=== PATIENT | female | born 1950 | race Caucasian/White ===

== ENCOUNTER → 2017-02-04 | Outpatient (CLI) | payer OTHER | LOC: FIMAGING 09:32 | PROVIDERS: ATTEND Surgery | DX: N63 Unspecified lump in breast (principal) | CPT/HCPCS: G0206 ==

== ENCOUNTER → 2017-02-26 | Outpatient (CLI) | payer OTHER ==
[~2017-02-26] MED LIST: THROMBIN (BOVINE) 5,000 UNIT VIAL TP ONE
== END ==
LOC: FIMAGING 13:45
PROVIDERS: ATTEND Surgery
PROC: 0HBU3ZX Excision of Left Breast, Percutaneous Approach, Diagnostic (ICD-10-PCS; principal; 2017-02-26)
DX: N63 Unspecified lump in breast (principal)
CPT/HCPCS: G0206

== ENCOUNTER → 2017-03-18 | Outpatient (CLI) | payer OTHER ==
[~2017-03-18] MED LIST changes: +GADOBUTROL 10 ML VIAL IVP ONE; -THROMBIN (BOVINE) 5,000 UNIT VIAL TP ONE
== END ==
LOC: FIMAGING 11:00
PROVIDERS: ATTEND Surgery
DX: C50.212 Malignant neoplasm of upper-inner quadrant of left female breast (principal)
CPT/HCPCS: 0159T; A9585; C8908

== ENCOUNTER 2017-03-28 06:42 | Inpatient (IN) | payer OTHER ==
[~2017-03-28 06:42] MED LIST changes: -GADOBUTROL 10 ML VIAL IVP ONE; +ceFAZolin 2 GM/DEXTROSE 100 ML IV ONE
[2017-03-28] MEDS ORDERED: THROMBIN (BOVINE) 20,000 UNIT SPRAY TP ONE (07:13)
[2017-03-28] MEDS ORDERED: BUPIVACAINE 0.5% 30 ML SDV ONE (07:13)
[2017-03-28] MEDS ORDERED: LIDOCAINE 1% 2 ML INJ ONE (07:22)
[2017-03-28] MEDS ORDERED: LR 1,000 ML IV ONE (08:24)
[2017-03-28] MEDS ORDERED: LIDOCAINE 1% 5 ML SDV ID PRN (08:24)
[2017-03-28] MEDS ORDERED: SCOPOLAMINE HYDROBROMIDE 1.5 MG PATCH TD ONE (09:18)
[2017-03-28] MEDS ORDERED: ONDANSETRON 4 MG/2 ML VIAL ONE (09:36)
[2017-03-28] MEDS ORDERED: fentaNYL 100 MCG/2 ML INJ ONE (09:36)
[2017-03-28] MEDS ORDERED: PROPOFOL 200 MG/20 ML VIAL ONE ×2 (09:36→12:03)
[2017-03-28] MEDS ORDERED: DEXAMETHASONE 4 MG/ML VIAL ONE ×2 (09:36→10:25)
[2017-03-28] MEDS ORDERED: LIDOCAINE 2% 5 ML SDV ONE (09:37)
[2017-03-28] MEDS ORDERED: KETOROLAC 30 MG/1 ML SDV ONE (09:40)
[2017-03-28] MEDS ORDERED: MIDAZOLAM 2 MG/2 ML VIAL ONE (10:03)
[2017-03-28] MEDS ORDERED: ACETAMINOPHEN 500 MG TAB ONE (10:05)
[2017-03-28] MEDS ORDERED: PROPOFOL/EMULSION 500 MG/50 ML BOTTLE IV ONE ×2 (10:17→11:10)
--- NOTE | 2017-03-28 10:36 | POSTOPPROG ---
Post Op Note Date of Operation: 03/28/17 Surgeon: Daphne Matthews Collision Mechanic: lior Anesthesiologist: manoj Anesthesia: GET(General Endotracheal) Pre-op Diagnosis: left metaplastic breast cancer Post-op Diagnosis: same Indication: 66 yo with metaplastic breast cancer Procedure: bilateral mastectomy, bilateral sln, r port Inf/Abcess present in the surg proc area at time of surgery?: No Depth: Superfical (Skin SQ) EBL: 50-100 Drains: Fidel Cisneros Specimen(s): breast short superior long lateral, bilateral sln
[2017-03-28] MEDS ORDERED: HYDROmorphONE/DILAUDID 2 MG/ML INJ ONE (11:09)
[2017-03-28] MEDS ORDERED: epHEDrine SULFATE 10 MG/ML SYR ONE (11:27)
[2017-03-28] MEDS ORDERED: HYDROmorphONE/DILAUDID 2 MG TAB PO PRN (12:20)
[2017-03-28] MEDS ORDERED: ONDANSETRON 4 MG/2 ML VIAL IVP PRN (12:22)
[2017-03-28] MEDS ORDERED: HYDROmorphONE/DILAUDID 1 MG/ML SYR IVP PRN (12:24)
--- NOTE | 2017-03-28 13:55 | GOP ---
[f rep st] OPERATIVE REPORT DATE OF OPERATION: 03/28/2017 SURGEON: Daphne Matthews MD PAYMENT PROCESSOR: Judd Carson MD who was requested by my presence for timely completion of the case. ANESTHESIOLOGIST: Sergei Alexander MD. PREOPERATIVE DIAGNOSIS: Left breast metaplastic carcinoma, left upper inner quadrant. POSTOPERATIVE DIAGNOSIS: Left breast metaplastic carcinoma, left upper inner quadrant. PROCEDURE PERFORMED: Bilateral mastectomy, bilateral sentinel node, right subclavian Slim PowerPort placement. FINDINGS: [place] lymph nodes negative. SPECIMENS: 1. Right mastectomy short superior long lateral. 2. Right sentinel lymph node. 3. Left mastectomy short superior long lateral. 1. Left sentinel lymph node. 4. ESTIMATED BLOOD LOSS: 100 cc. INDICATIONS: Marilin Lebron is a 66-year-old woman who had a left upper inner breast mass. Her needle biopsy was discongruent with the radiographic findings. Excisional biopsy was performed. A metaplastic carcinoma was diagnosed. We discussed lumpectomy versus mastectomy, and she would like to proceed with bilateral mastectomy. DESCRIPTION OF PROCEDURE: Marilin was brought into the operating room, placed supine on the table, and general anesthesia was administered. Her bilateral neck and chest were prepped and draped in the usual sterile fashion. I started on the right side. I made an ellipse around the nipple areolar complex and created skin flaps that extended to the clavicle sternum inframammary fold and mid axillary line. I removed the breast including the pectoralis fascia. The breast was marked short superior, long lateral and sent to Pathology for fresh. Hemostasis was achieved. I used the gamma probe to identify the sentinel lymph node in the right axilla. This was submitted to Pathology for frozen. A damp lap was placed in this wound. On the left side, a similar dissection occurred. My incision was slightly different to include her previous scar. Again, my skin flaps occurred to the clavicle, sternum, inframammary fold, and mid axillary line, and I also took the pectoralis fascia. I did not enter the previous lumpectomy cavity. This breast sent to Pathology for fresh. I obtained a sentinel lymph node, and this was sent to Pathology for frozen. Hemostasis was achieved. The patient was in the Trendelenburg position with her arm at her side. I accessed the right subclavian vein on the 2nd attempt with dark return of blood flow. I threaded the guidewire and removed the needle. Placement was confirmed in the inferior vena cava with fluoroscopy. I placed the port over her pectoralis muscle and tunnelled this up to the insertion site. I measured and cut the catheter to size. Using the Seldinger technique, I placed a dilator and sheath over the wire. I removed the wire and the dilator. I threaded the catheter through the sheath and I peeled away the sheath. The initial placement appeared to be in the right ventricle, and so I pulled the port back slightly. Placement was then at the SVC RA junction. I sutured the port to the pectoralis muscle with 2-0 Vicryl. A 15 Kaden drain was placed in each wound. They were sutured with 3-0 nylon. Each wound was inspected for hemostasis which was achieved. Each wound was closed with 3-0 Vicryl, followed by 4-0 Monocryl. Due to her adhesive allergy , Dermabond was applied. She was awakened in the operating room, extubated, transferred to PACU in stable condition. A chest x-ray is pending. /[id number]/MODL MTDD
[2017-03-28] MEDS: D5W 1/2 NS W/ 20 KCl/L 1,000 ML IV SCH (14:53)
[2017-03-28] MEDS: KETOROLAC 15 MG/1 ML SDV IVP SCH (18:11)
[2017-03-28] MEDS ORDERED: diphenhydrAMINE 25 MG CAP PO PRN (19:03)
[2017-03-28] MEDS: ACETAMINOPHEN 500 MG TAB PO PRN (21:05)
[2017-03-28] MEDS: VERAPAMIL ER 180 MG TAB PO SCH (21:07)
[2017-03-28] MEDS: DIVALPROEX ER 500 MG TAB PO SCH (21:07)
[2017-03-29] MEDS: KETOROLAC 15 MG/1 ML SDV IVP SCH ×2 (00:03→04:55)
[2017-03-29] MEDS ORDERED: NS BOLUS 500 ML (Wide open) IV ONE (00:30)
[2017-03-29] MEDS: D5W 1/2 NS W/ 20 KCl/L 1,000 ML IV SCH (04:55)
[2017-03-29 05:40] LABS: % IMMATURE GRANULYOCYTES 0.3 % (0.0-1.1); ABSOLUTE IMMATURE GRANULOCYTES 0.03 10^3/uL (0.00-0.10); ADD DIFF? NO; ADD MORPH? NO; ADD SCAN? NO; ATYPICAL LYMPHOCYTE FLAG 0 (0-99); FRAGMENT RBC FLAG 0 (0-99); HEMATOCRIT 29.3 % (38.0-47.0); HEMOGLOBIN 9.4 g/dL (12.6-16.3); LEFT SHIFT FLG 20 (0-99); LIPEMIA HEMOLYSIS FLAG 80 (0-99); MEAN CELL HEMOGLOBIN 29.7 pg (27.9-34.1); MEAN CELL HEMOGLOBIN CONCENTR. 32.1 g/dL (32.4-36.7); MEAN CELL VOLUME 92.7 fL (81.5-99.8); MEAN PLATELET VOLUME 11.3 fL (8.7-11.7); PLATELET CLUMPS FLAG 0 (0-99); PLATELET COUNT 142 10^3/uL (150-400); RED BLOOD CELL COUNT 3.16 10^6/uL (4.18-5.33); RED CELL DISTRIBUTION WIDTH 12.6 % (11.5-15.2)
[2017-03-29 06:35] LABS: ANION GAP 8 mEq/L (8-16); CALCIUM 8.3 mg/dL (8.5-10.4); CARBON DIOXIDE 22 mEq/l (22-31); CHLORIDE 106 mEq/L (97-110); CREATININE 0.8 mg/dL (0.6-1.0); GLOMERULAR FILTRATION RATE > 60; GLUCOSE 118 mg/dL (70-100); POTASSIUM 4.5 mEq/L (3.5-5.2); SODIUM 136 mEq/L (134-144)
--- NOTE | 2017-03-29 07:24 | SOAPPROG ---
SOAP Progress Note Assessment/Plan: Assessment: POD # 1 s/p bilateral mastectomy and bilateral sentinel lymph node and right subclavian port for left upper inner metaplastic breast cancer Vagal response last evening Acute anemia blood loss - will recheck H/H this afternoon Difficulty sleeping - added ambien May shower with drains Does not need covering over wounds (dermabond in place) Blood pressure can be on either leg, try to be consistent positioning S: Feeling better today Plan: 03/29/17 07:21 03/29/17 12:58 Objective: Vital Signs Temp Pulse Resp BP Pulse Ox 36.6 C 67 16 105/60 98 03/29/17 04:48 03/29/17 04:48 03/29/17 04:48 03/29/17 04:48 03/29/17 04:48 Laboratory Results 03/29/17 05:01 03/29/17 05:01 03/28/17 03/29/17 03/30/17 05:59 05:59 05:59 Intake Total 4700 Output Total 1255 Balance 3445 Physical Exam - Physical Exam General Appearance: WD/WN, alert, no apparent distress, other ( at bedside) EENT: PERRL/EOMI, normal ENT inspection Respiratory: chest non-tender, lungs clear Cardiac/Chest: regular rate, rhythm Skin: other (ecchymosis and some fullness on right breast. Left breast with small ecchymosis. both ROGERIO drains with serosanguinous fluid right more than left. Port site cdi) ICD10 Worksheet Patient Problems: Problems Problem Status Onset Breast cancer in female Acute - ICD10 Problem Qualifiers (1) Breast cancer in female Qualifiers: Breast location: upper inner quadrant of breast Laterality: left Qualified Code(s): C50.212 - Malignant neoplasm of upper-inner quadrant of left female breast
[2017-03-29] MEDS: ACETAMINOPHEN 500 MG TAB PO PRN ×2 (09:50→18:18)
[2017-03-29 11:32] VITALS: RESP 16
[2017-03-29] MEDS ORDERED: ZOLPIDEM TARTRATE 5 MG TAB PO PRN (11:56)
[2017-03-29] MEDS ORDERED: KETOROLAC 15 MG/1 ML SDV IVP PRN (11:59)
[2017-03-29] MEDS ORDERED: (Eletriptan Hbr [Relpax] 40 MG) PO PRN (13:56)
[2017-03-29 16:34] LABS: HEMATOCRIT 24.9 % (38.0-47.0)
[2017-03-29] MEDS ORDERED: VERAPAMIL ER 180 MG TAB PO SCH (21:00)
[2017-03-29] MEDS ORDERED: DIVALPROEX ER 500 MG TAB PO SCH (21:00)
[2017-03-29] MEDS: DIVALPROEX ER 500 MG TAB PO SCH (21:31)
[2017-03-29] MEDS: VERAPAMIL ER 180 MG TAB PO SCH (21:37)
[2017-03-30 05:23] LABS: % IMMATURE GRANULYOCYTES 0.3 % (0.0-1.1); ABSOLUTE IMMATURE GRANULOCYTES 0.02 10^3/uL (0.00-0.10); ADD DIFF? NO; ADD MORPH? NO; ADD SCAN? NO; ATYPICAL LYMPHOCYTE FLAG 10 (0-99); FRAGMENT RBC FLAG 0 (0-99); HEMATOCRIT 28.1 % (38.0-47.0); HEMOGLOBIN 9.1 g/dL (12.6-16.3); LEFT SHIFT FLG 0 (0-99); LIPEMIA HEMOLYSIS FLAG 80 (0-99); MEAN CELL HEMOGLOBIN 29.8 pg (27.9-34.1); MEAN CELL HEMOGLOBIN CONCENTR. 32.4 g/dL (32.4-36.7); MEAN CELL VOLUME 92.1 fL (81.5-99.8); MEAN PLATELET VOLUME 11.3 fL (8.7-11.7); PLATELET CLUMPS FLAG 0 (0-99); PLATELET COUNT 106 10^3/uL (150-400); RED BLOOD CELL COUNT 3.05 10^6/uL (4.18-5.33); RED CELL DISTRIBUTION WIDTH 13.5 % (11.5-15.2)
--- NOTE | 2017-03-30 09:21 | SOAPPROG ---
SOAP Progress Note Assessment/Plan: Assessment: POD # 2 s/p bilateral mastectomy and bilateral sentinel lymph node and right subclavian port for left upper inner metaplastic breast cancer Acute anemia blood loss - transfused 1 unitPRBC DC home Does not need covering over wounds (dermabond in place) S: Feeling better today o: Sitting in bed, cheerful CTAB RRR Hematoma soft on right, none on left JPs with scant serosanguinous fluid Plan: 03/29/17 07:21 03/29/17 12:58 03/30/17 09:18 Objective: Vital Signs Temp Pulse Resp BP Pulse Ox 37.2 C 82 16 122/67 H 93 03/30/17 07:33 03/30/17 07:33 03/30/17 07:33 03/30/17 07:33 03/30/17 07:33 Laboratory Results 03/30/17 04:52 03/29/17 05:01 03/29/17 03/30/17 03/31/17 05:59 05:59 05:59 Intake Total 4700 1950 Output Total 1255 347 20 Balance 3445 1603 -20 ICD10 Worksheet Patient Problems: Problems Problem Status Onset Breast cancer in female Acute - ICD10 Problem Qualifiers (1) Breast cancer in female Qualifiers: Breast location: upper inner quadrant of breast Laterality: left Qualified Code(s): C50.212 - Malignant neoplasm of upper-inner quadrant of left female breast
[2017-03-30 12:10] VITALS: BP 128/77; PULSE 91; TEMP 98.2; O2SAT 98
== END 2017-03-30 15:41 | disposition home or self-care (01) | DRG 582 ==
LOC: FSGY 06:42 → F1N 10:37 → OBSVTOIN 03-29 15:35
PROVIDERS: ADMIT Surgery; ATTEND Surgery
DX: C50.212 Malignant neoplasm of upper-inner quadrant of left female breast (principal); D62 Acute posthemorrhagic anemia
CPT/HCPCS: 97161-GP; 97166-GO; 97530-GO; 97535-GO; A9520; C1788; G0378; J0690; J1100; J1170; J1642; J1885; J2250; J2405; J2704; J3010; P9016

== ENCOUNTER → 2017-07-16 | Outpatient (CLI) | payer OTHER | LOC: FIMAGING 16:31 | PROVIDERS: ATTEND Internal Medicine Hematology & Oncology | DX: R05 Cough (principal); C50.212 Malignant neoplasm of upper-inner quadrant of left female breast ==

== ENCOUNTER 2017-09-11 09:45 | Observation (INO) | payer OTHER ==
[~2017-09-11 09:45] MED LIST changes: -ceFAZolin 2 GM/DEXTROSE 100 ML IV ONE; +ceFAZolin 2 GM/SWFI 2 GM/20 ML SYR IVP ONE
[2017-09-11] MEDS ORDERED: LIDOCAINE 1% 2 ML INJ ID PRN (09:59)
[2017-09-11] MEDS ORDERED: LR 1,000 ML IV ONE (09:59)
[2017-09-11] MEDS ORDERED: BUPIVACAINE 0.5% 30 ML SDV ONE (10:15)
[2017-09-11] MEDS ORDERED: LIDOCAINE 1% 300 MG/30 ML SDV ONE (10:16)
[2017-09-11] MEDS ORDERED: MIDAZOLAM 2 MG/2 ML VIAL IVP ONE (11:23)
--- NOTE | 2017-09-11 11:24 | PDANEPAE ---
ANE History of Present Illness here for WLE ANE Past Medical History - Cardiovascular History Hx Hypertension: No Hx Arrhythmias: No Hx Chest Pain: No Hx Coronary Artery / Peripheral Vascular Disease: No Hx CHF / Valvular Disease: No Hx Palpitations: No - Pulmonary History Hx COPD: No Hx Asthma/Reactive Airway Disease: No Hx Recent Upper Respiratory Infection: No Hx Oxygen in Use at Home: No Hx Sleep Apnea: No - Neurologic History Hx Cerebrovascular Accident: No Hx Seizures: No Hx Dementia: No - Endocrine History Hx Diabetes: No - Renal History Hx Renal Disorders: Yes Renal History Comment: occ UTI or vaginal yeast infection - Liver History Hx Hepatic Disorders: No - Neurological & Psychiatric Hx Hx Neurological and Psychiatric Disorders: No - Cancer History Hx Cancer: Yes Cancer History Comment: L breast - Congenital Disorder History Hx Congenital Disorders: No - GI History Hx Gastrointestinal Disorders: No - Other Health History Other Health History: OA fingers - Chronic Pain History Chronic Pain: No - Surgical History Prior Surgeries: bilat mastecectomies 03/2017. rt rotater cuff rep 10/18. excisional L br bx 03-05-17. R total knee 2010. L total knee 2005. L rotator cuff 2010. bx-bilat [id number]. wedge resection of ovary 1974 ANE Review of Systems Review of Systems: - Exercise capacity Exercise capacity: >=4 METS METS (RN): 3 METS ANE Patient History - Allergies Allergies/Adverse Reactions: adhesive Allergy (Mild, Verified 09/11/17 10:48) Rash latex Allergy (Verified 09/11/17 10:48) Rash povidone-iodine [From Betadine] Allergy (Verified 09/11/17 10:48) Rash soap [From Betadine] Allergy (Verified 09/11/17 10:47) Rash chloroprep Allergy (Uncoded 09/11/17 10:43) Rash nickel Allergy (Uncoded 09/11/17 10:48) Rash surgical glue Allergy (Uncoded 09/11/17 10:48) Rash - Home Medications Home medications: home medication list seen and reviewed Home Medications: Acetamn/Diphenhydramine 500/25 [Tylenol PM (*)] 1 - 2 each PO HS PRN 03/28/17 [ Last Taken 03/27/17] Divalproex ER [Depakote ER 500 MG (*)] 500 mg PO HS 03/28/17 [Last Taken ] Eletriptan HBr [Relpax] 40 mg PO AD PRN MDD 2 tabs in 24 hours 03/28/17 [Last Taken Unknown] Verapamil ER [Calan SR/ER 180MG (*)] 180 mg PO HS 03/28/17 [Last Taken 03/27/17] - NPO status NPO Since - Liquids (Date): 09/10/17 NPO Since - Liquids (Time): 22:30 NPO Since - Solids (Date): 09/10/17 NPO Since - Solids (Time): 22:30 - Smoking Hx Smoking Status: Never smoked ANE Labs/Vital Signs - Vital Signs Blood Pressure: 107/80 Heart Rate: 85 Respiratory Rate: 16 O2 Sat (%): 96 Height: 170.18 cm Weight: 72.575 kg ANE Physical Exam - Airway Neck exam: FROM Mallampati Score: Class 1 - Pulmonary Pulmonary: no respiratory distress - Cardiovascular Cardiovascular: regular rate and rhythym - ASA Status ASA Status: II ANE Anesthesia Plan Anesthesia Plan: GA w LMA
--- NOTE | 2017-09-11 11:33 | PDHPUP ---
History & Physical Update H&P update statement: This history and physical update is based on an assessment of the patient which was completed after admission or registration (within 24 hours), but prior to the surgery/procedure. H&P update: H&P reviewed & patient examined H&P changes: Met with [facility] yesterday. Reviewed CT results with Dr. Sullivan and plan of care. Will re-excise, send frozens and close
[2017-09-11] MEDS ORDERED: ceFAZolin 2 GM/SWFI 20 ML SYR IVP ONE (11:37)
[2017-09-11] MEDS ORDERED: MIDAZOLAM 2 MG/2 ML VIAL ONE (11:37)
[2017-09-11] MEDS ORDERED: SCOPOLAMINE HYDROBROMIDE 1 MG/3 DAYS PATCH TD SCH (11:45)
[2017-09-11] MEDS ORDERED: fentaNYL 100 MCG/2 ML INJ ONE ×2 (11:52→12:30)
[2017-09-11] MEDS ORDERED: PROPOFOL/EMULSION 500 MG/50 ML BOTTLE IV ONE (11:53)
[2017-09-11] MEDS ORDERED: PROPOFOL 200 MG/20 ML VIAL ONE ×3 (12:05→12:48)
[2017-09-11] MEDS ORDERED: ALBUTEROL 3 ML DEYVIAL IH PRN (12:14)
[2017-09-11] MEDS ORDERED: NALOXONE HCL 0.4 MG/ML INJ IVP PRN (12:14)
[2017-09-11] MEDS ORDERED: HYDROmorphONE/DILAUDID 1 MG/ML INJ IVP PRN ×2 (12:14→13:40)
[2017-09-11] MEDS ORDERED: fentaNYL 100 MCG/2 ML INJ IVP PRN (12:14)
[2017-09-11] MEDS ORDERED: OXYCODONE/APAP 5/325 TAB PO PRN (12:14)
[2017-09-11] MEDS ORDERED: HYDROCODONE/APAP 5/325 TAB PO PRN (12:14)
[2017-09-11] MEDS ORDERED: HYDROmorphone HCL/NS/PF 0.4 MG/2 ML SYR IVP PRN (12:50)
[2017-09-11] MEDS ORDERED: SCOPOLAMINE HYDROBROMIDE 1 MG/3 DAYS PATCH TD ONE (13:16)
[2017-09-11] MEDS ORDERED: IBUPROFEN 600 MG TAB PO PRN (13:40)
[2017-09-11] MEDS ORDERED: ONDANSETRON 4 MG/2 ML VIAL IVP PRN (13:40)
--- NOTE | 2017-09-11 13:42 | POSTOPPROG ---
Post Op Note Date of Operation: 09/11/17 Surgeon: Daphne Matthews Piercing Artist: shasta loera Anesthesiologist: david mendoza Anesthesia: GET(General Endotracheal) Pre-op Diagnosis: L metaplastic carcinoma Post-op Diagnosis: same Indication: 66 yo with recurrent metaplastic cancer Procedure: wle L breast Findings: negative frozen Inf/Abcess present in the surg proc area at time of surgery?: No Depth: Superfical (Skin SQ) Drains: Fidel Cisneros Specimen(s): wle and margins
[2017-09-11] MEDS: ACETAMINOPHEN 325 MG TAB PO PRN ×2 (14:36→20:32)
[2017-09-11] MEDS ORDERED: ZOLPIDEM TARTRATE 5 MG TAB PO PRN (17:26)
[2017-09-11 19:46] VITALS: RESP 16
--- NOTE | 2017-09-11 20:43 | GOP ---
[f rep st] OPERATIVE REPORT DATE OF OPERATION: 09/11/2017 SURGEON: Daphne Matthews MD REFRIGERATING TECHNICIAN: BERTO Levin student ANESTHESIA: General. ANESTHESIOLOGIST: Dr. Memo Bhat. PREOPERATIVE DIAGNOSIS: Left breast recurrent metaplastic carcinoma. POSTOPERATIVE DIAGNOSIS: Left breast recurrent metaplastic carcinoma. PROCEDURE PERFORMED: Wide local excision including pectoralis muscle, left breast. FINDINGS: Frozen section is negative. SPECIMENS: Left breast re-excision, short superior, long lateral. Deep inked blue. Additional supe rior margin inked red, medial margin inked yellow, inferior margin inked blue, lateral margin inked o range, and 8 o'clock margin inked green. ESTIMATED BLOOD LOSS: 20 cc. INDICATIONS: The patient is a 66-year-old woman who underwent bilateral mastectomy without reconstru ction for metaplastic carcinoma. She underwent chemotherapy. She developed a nodule in her scar hilary e. I biopsied this in the office, and it did show recurrent metaplastic carcinoma with positive ramón ins. DESCRIPTION OF PROCEDURE: The patient was brought into the operating room, placed supine on the tabl e, and general anesthesia was administered. Her left breast was prepped with Betadine and draped in the usual sterile fashion. I excised her scar and created superior and inferior skin flaps. I disse cted down to the level of the pectoralis muscle near the area where the previous biopsy was. I excis ed the pectoralis muscle down to the level of the rib. This was marked short superior, long lateral, and I inked the muscle blue. I took an additional superior margin inked red, medial margin inked ye llow, inferior margin inked blue, and lateral margin inked orange. As I was examining the cavity, I felt there was additional tissue at the 8 o'clock area that I took and inked it green. The frozen se ction on the pectoralis muscle in the inferior area returned negative. Hemostasis was achieved. The wound was inspected several times to look for any additional nodularity and none was found. A 15 ro und silicone drain was placed and sutured into place with 3-0 nylon. The wound was closed with 3-0 V icryl, followed by 4-0 Monocryl. A silver Mepilex dressing was applied. She tolerated the procedure well. /[id number]/MODL
[2017-09-12] MEDS: ACETAMINOPHEN 325 MG TAB PO PRN (03:32)
[2017-09-12] MEDS ORDERED: ZOLPIDEM TARTRATE 5 MG TAB PO PRN (05:11)
[2017-09-12] MEDS ORDERED: Eletriptan Hbr [Relpax] 40 MG PO PRN ×2 (05:11)
[2017-09-12 06:09] LABS: % IMMATURE GRANULYOCYTES 0.8 % (0.0-1.1); ABSOLUTE IMMATURE GRANULOCYTES 0.02 10^3/uL (0.00-0.10); ADD DIFF? NO; ADD MORPH? NO; ADD SCAN? NO; ATYPICAL LYMPHOCYTE FLAG 0 (0-99); FRAGMENT RBC FLAG 0 (0-99); HEMOGLOBIN 10.1 g/dL (12.6-16.3); LEFT SHIFT FLG 0 (0-99); LIPEMIA HEMOLYSIS FLAG 80 (0-99); MEAN CELL HEMOGLOBIN 30.3 pg (27.9-34.1); MEAN CELL HEMOGLOBIN CONCENTR. 32.6 g/dL (32.4-36.7); MEAN CELL VOLUME 93.1 fL (81.5-99.8); MEAN PLATELET VOLUME 9.5 fL (8.7-11.7); PLATELET CLUMPS FLAG 20 (0-99); PLATELET COUNT 146 10^3/uL (150-400); RED BLOOD CELL COUNT 3.33 10^6/uL (4.18-5.33); RED CELL DISTRIBUTION WIDTH 14.2 % (11.5-15.2)
[2017-09-12 08:17] VITALS: BP 102/73; PULSE 78; TEMP 98; O2SAT 91
--- NOTE | 2017-09-12 09:09 | ASMTCMCOM ---
CM Note CM Note Notes: Patient chart reviewed. S/P resection of breast nodule. She has been dcd as she is medically stable. No needs identified. CM available should needs arise. Date Signed: 09/12/2017 09:09 AM Electronically Signed By:Sierra Sosa RN
--- NOTE | 2017-09-12 12:25 | ASDISCHSUM ---
Discharge Information Plan Status:Home with No Needs Medically Cleared to Leave:09/11/2017 Discharge Date:09/12/2017 10:08 AM CM D/C Disposition:Home, Routine, Self-Care ADT D/C Disposition:Home, Routine, Self-Care Projected Discharge Date:09/12/2017 10:08 AM Transportation at D/C:Family Discharge Delay Reason: Follow-Up Date:09/12/2017 10:08 AM Discharge Slot: Final Diagnosis: Placement Information Patient Contact Information Contact Name:KITTY Relationship: Address:[address] [place] [address] City:[place] Alternate Phone: [facility]/Zip Code:[place] [address] Email: Financial Information Financial Class:HMO and PPO Plans Primary Plan Desc:[facility] Primary Plan Number:[id number] Secondary Plan Desc: Secondary Plan Number: Assessment Information LACE LACE Length of stay for Answers: Less than 1 day current admission Acuity / Level of Care Answers: No. Comorbidities - select Answers: Any tumor (including all that apply lymphoma or leukemia) Emergency dept visits in Answers: 0 last 6 months Score: 2 Date Signed: 09/12/2017 09:07 AM Electronically Signed By:Sierra Sosa RN [facility] CM Progress Note CM Note CM Note Notes: Patient chart reviewed. S/P resection of breast nodule. She has been dcd as she is medically stable. No needs identified. CM available should needs arise. Date Signed: 09/12/2017 09:09 AM Electronically Signed By:Sierra Sosa RN Intervention Information
--- NOTE | 2017-09-12 16:02 | GDS ---
[f rep st] DISCHARGE SUMMARY ADMITTING DIAGNOSIS: Recurrent metaplastic breast cancer. SECONDARY DIAGNOSES: 1. Arthritis. 2. Migraine headaches. REASON FOR ADMISSION: The patient is a 66-year-old woman who was receiving chemotherapy for metaplas tic breast cancer when she developed a nodule in her scar line. A biopsy showed recurrent metaplasti c disease. She is admitted at this time for surgical intervention, pain control, and observation. HOSPITAL COURSE: Marilin was taken to the operating room on 09/11/[address] Daphne Matthews for wide loca l excision of the left breast nodule. Frozen section from the time of surgery showed clear margins. She had a ROGERIO drain placed. She had an uncomplicated postoperative course including no swelling, sym ptoms of infection, and adequate pain control. She was ready for discharge on postoperative day #1. She was tolerating regular diet, ambulating independently, and her pain was well controlled. CONDITION: She is being discharged home in stable condition. Pain is well controlled. Ambulating i ndependently. Tolerating regular diet. DISCHARGE MEDICATIONS: She was instructed to resume her home medications. She did not want a prescr iption for pain medication. Please see EMR for further detail. DISCHARGE INSTRUCTIONS AND FOLLOWUP: She will empty and record her ROGERIO drain daily, and understands t hat we will remove this when they are less than 20 cc out per 24 hours for 2 consecutive days. She w ill avoid heavy lifting, pushing, or pulling for 2 weeks. She may change the outer bandage as needed . She may shower. She understands to call our office with any worsening symptoms, questions, or con cerns. She will follow up on of next week. /[id number]/MODL
[2017-09-12] MEDS ORDERED: DIVALPROEX ER 250 MG TAB PO SCH (21:00)
[2017-09-14] MEDS ORDERED: Estradiol [Vagifem] 10 MCG VG SCH (09:00)
[2017-09-14] MEDS ORDERED: PATCH REMOVAL 1 EA PATCH TD SCH (11:31)
== END 2017-09-12 10:08 | disposition home or self-care (01) ==
LOC: UNDOADMOB 09:45 → F1N 09:45 → UNDOADMOB 09:59 → F1N 09:59 → EDSTATUS 11:30 → F1N 14:04
PROVIDERS: ADMIT Surgery; ATTEND Surgery
PROC: 0HBU0ZZ Excision of Left Breast, Open Approach (ICD-10-PCS; principal; 2017-09-11 11:30)
DX: N63.20 Unspecified lump in the left breast, unspecified quadrant (principal)
CPT/HCPCS: 19301; G0378; J0690; J1642; J2250; J2704; J3010

== ENCOUNTER 2018-03-09 13:07 | Emergency (ER) | payer OTHER, MEDICARE ==
--- NOTE | 2018-03-09 14:16 | EDPHY ---
H & P Stated Complaint: LLE Non Traumatic Swelling following Roadtrip Time Seen by Provider: 03/09/18 13:32 HPI/ROS: CHIEF COMPLAINT: Left lower extremity swelling HISTORY OF PRESENT ILLNESS: The patient has a history of breast cancer currently on chemotherapy who presents to the ED with left leg swelling. The patient denies prior history of PE or DVT. She denies any pleuritic chest pain or shortness of breath. The patient denies any history of fall or trauma. She did notice a small area of ecchymosis on the lateral aspect of her thigh. The patient is currently receiving oral chemotherapy which was held for mild thrombocytopenia. The patient denies any fever, cough or congestion. She denies additional acute complaints. REVIEW OF SYSTEMS: A comprehensive 10 point review of systems is otherwise negative aside from elements mentioned in the history of present illness. Source: Patient Exam Limitations: No limitations - Personal History Current Tetanus/Diphtheria Vaccine: Unsure Current Tetanus Diphtheria and Acellular Pertussis (TDAP): Unsure - Medical/Surgical History Hx Asthma: No Hx Chronic Respiratory Disease: No Hx Diabetes: No Hx Cardiac Disease: No Hx Renal Disease: No Hx Cirrhosis: No Hx Alcoholism: No Hx HIV/AIDS: No Hx Splenectomy or Spleen Trauma: No Other PMH: hardware b/l knees, rotator cuff repair JANET, Breast CA - Social History Smoking Status: Never smoked - Physical Exam Exam: General Appearance: Alert, no distress Eyes: Pupils equal and round no pallor or injection ENT, Mouth: Mucous membranes moist Respiratory: There are no retractions, lungs are clear to auscultation Cardiovascular: Regular rate and rhythm Gastrointestinal: Abdomen is soft and nontender, no masses, bowel sounds normal Neurological: 5/5 strength noted all 4 extremities Skin: Warm and dry, no rashes Musculoskeletal: Neck is supple nontender Extremities: Mild asymmetry noted to the left calf, no calf tenderness, 2+ dorsalis pedis and posterior tibial pulses noted Constitutional: Initial Vital Signs Temperature (C) 36.7 C 03/09/18 13:10 Heart Rate 87 03/09/18 13:10 Respiratory Rate 18 03/09/18 13:10 Blood Pressure 138/89 H 03/09/18 13:10 O2 Sat (%) 97 03/09/18 13:10 O2 Delivery Mode Room Air Allergies/Adverse Reactions: adhesive Allergy (Mild, Verified 09/11/17 10:48) Rash latex Allergy (Verified 09/11/17 10:48) Rash povidone-iodine [From Betadine] Allergy (Verified 09/11/17 10:48) Rash soap [From Betadine] Allergy (Verified 09/11/17 10:47) Rash chloroprep Allergy (Uncoded 09/11/17 10:43) Rash nickel Allergy (Uncoded 09/11/17 10:48) Rash surgical glue Allergy (Uncoded 09/11/17 10:48) Rash Home Medications: Medication Instructions Recorded Divalproex ER [Depakote ER 500 MG 750 mg PO HS 03/28/17 (*)] Eletriptan HBr [Relpax] 40 mg PO AD PRN MDD 2 tabs in 24 03/28/17 hours Zolpidem Tartrate [Ambien 5MG (*)] 5 mg PO HS PRN #30 tab 03/30/17 Estradiol [VAGIFEM] 10 mcg VG WHITESIDE 09/11/17 Medical Decision Making - Diagnostics Imaging Results: Imaging Impressions Extremity Venous Study 03/09/18 13:31 Impression: No deep venous thrombosis left leg. Findings and recommendations discussed with Emergency Department physician, Syed Drake at 14:16 hour, 03/09/2018. Final report concurs with initial preliminary interpretation. ED Course/Re-evaluation: The patient presents to the ED for evaluation of mild left leg edema. The patient was noted to be neurologically intact. She is afebrile. There is no clinical evidence of a cellulitis, abscess or septic arthritis. The patient was taken for an ultrasound of her lower extremity which demonstrates no evidence of a DVT or superficial phlebitis. I re-evaluated the patient at 2:30 p.m. and reviewed the results of her ultrasound. At this point time I will recommend conservative management with elevation. She should continue to be ambulatory. She is advised to return to the ED for worsening pain, swelling, numbness or weakness. I have also advised her to repeat the ultrasound in 2 weeks to ensure that she has not developed a DVT. Differential Diagnosis: Differential diagnosis considered includes DVT, myofascial strain, superficial phlebitis, cellulitis, septic arthritis Departure - Departure Disposition: Home, Routine, Self-Care Clinical Impression: Left leg swelling Condition: Good Additional Instructions: 1. Your ultrasound today demonstrates no evidence of a blood clot. 2. I recommend repeating the ultrasound in 2 weeks for any ongoing symptoms to ensure a blood clot has not developed. 3. Please return to the ED immediately for increased pain, swelling, redness or other concerns. 4. Follow up with your primary care provider as needed. Referrals: Daphne Brooks MD [Primary Care Provider] - As per Instructions
[2018-03-09 14:46] VITALS: BP 107/70
== END 2018-03-09 14:45 | disposition home or self-care (01) ==
DX: M79.89 Other specified soft tissue disorders (principal); Z85.3 Personal history of malignant neoplasm of breast; Z91.040 Latex allergy status

== ENCOUNTER → 2018-11-04 | Outpatient (CLI) | payer OTHER, MEDICARE | LOC: BMCIMAGING 11:00 | PROVIDERS: ATTEND Internal Medicine Rheumatology | DX: M19.041 Primary osteoarthritis, right hand (principal); M19.042 Primary osteoarthritis, left hand ==

== ENCOUNTER → 2018-11-10 | Outpatient (CLI) | payer OTHER, MEDICARE | LOC: FIMAGING 09:09 | PROVIDERS: ATTEND Family Medicine | DX: Z13.820 Encounter for screening for osteoporosis (principal); Z78.0 Asymptomatic menopausal state ==